=== PATIENT | male | born 1985 | race Caucasian/White ===

== ENCOUNTER 2017-11-07 10:51 | Outpatient (CLI) | payer OTHER | END 2017-11-07 10:52 | disposition critical access hospital (66) | LOC: EMS 10:51 | PROVIDERS: ATTEND Surgery | DX: R07.89 Other chest pain (principal); R10.9 Unspecified abdominal pain; M25.511 Pain in right shoulder; R51 Headache; M79.652 Pain in left thigh; M25.532 Pain in left wrist; M25.531 Pain in right wrist; W12.XXXA Fall on and from scaffolding, initial encounter; Y93.H3 Activity, building and construction; Y92.69 Other specified industrial and construction area as the place of occurrence of the external cause | CPT/HCPCS: A0425; A0427 ==

== ENCOUNTER 2017-11-07 11:12 | Emergency (ER) | payer OTHER ==
[2017-11-07] MEDS: HYDROmorphone 1 MG/ML SYRINGE IVP STA ×2 (11:18→12:58)
[2017-11-07] MEDS ORDERED: HYDROmorphone 1 MG/ML SYRINGE ONE (11:29)
--- NOTE | 2017-11-07 11:39 | XRAY Preliminary Report ---
Exam: XR CHEST 1 VIEW IMPRESSION: Normal single view chest. [facility] SITE ID: [id number]
[2017-11-07 11:41] LABS: BASOPHILS % (AUTO) 0.3 %; EOSINOPHILS # (AUTO) 0.2 10^3/uL (0.0-0.7); EOSINOPHILS % (AUTO) 1.2 %; HGB - HEMOGLOBIN 13.8 g/dL (14.0-18.0); LYMPHOCYTES # (AUTO) 3.2 10^3/uL (1.5-3.5); LYMPHOCYTES % (AUTO) 24.9 %; MEAN CORPUSCULAR HGB CONC 33.9 g/dL (32.0-36.0); MEAN CORPUSCULAR VOLUME 88.4 fL (80.0-94.0); MEAN PLATELET VOLUME 8.8 fL (7.4-11.4); MONOCYTES # (AUTO) 0.4 10^3/uL (0.0-1.0); MONOCYTES % (AUTO) 3.3 %; NEUTROPHILS % (AUTO) 70.3 %; PLT - PLATELET COUNT 245 10^3/uL (130-450); RED CELL DISTRIBUTION WIDTH 13.1 % (12.0-15.0); WHITE BLOOD COUNT 12.9 x10^3/uL (4.8-10.8)
--- NOTE | 2017-11-07 11:41 | XRAY Report ---
EXAM: CHEST RADIOGRAPHY EXAM DATE: 11/07/2017 11:31 AM. CLINICAL HISTORY: Trauma. Right chest pain COMPARISON: None. TECHNIQUE: 1 view. FINDINGS: Lungs/Pleura: No focal opacities evident. No pleural effusion. No pneumothorax. Mediastinum: Within exam limitations, the cardiomediastinal contour is normal. Other: None. IMPRESSION: Normal single view chest. [facility] Referring Provider Line: [phone] SITE ID: [id number]
[2017-11-07] MEDS ORDERED: SODIUM CHLORIDE 0.9% 2,000 ML IV ONE (11:44)
[2017-11-07] MEDS ORDERED: HYDROmorphone 1 MG/ML SYRINGE IVP STA ×4 (11:45→14:00)
[2017-11-07 11:59] LABS: ALBUMIN 3.8 g/dL (3.2-5.5); ALBUMIN/GLOBULIN RATIO 1.3 (1.0-2.2); BILIRUBIN,TOTAL 0.4 mg/dL (0.2-1.0); CALCIUM 8.5 mg/dL (8.5-10.3); CREATININE 0.8 mg/dL (0.6-1.2); TOTAL PROTEIN 6.8 g/dL (6.7-8.2)
[2017-11-07] MEDS ORDERED: IOPAMIDOL-300 100 ML VIAL IVP ONE (12:05)
--- NOTE | 2017-11-07 12:13 | CT Preliminary Report ---
Exam: CT HEAD W/O IMPRESSION: 1. No intracranial abnormality demonstrated. 2. Right nasal bone fracture, of indeterminate age. [facility] SITE ID: [id number]
--- NOTE | 2017-11-07 12:16 | CT Report ---
EXAM: CT HEAD EXAM DATE: 11/07/2017 11:55 AM. CLINICAL HISTORY: Trauma. 10 foot fall from ladder. COMPARISON: None. TECHNIQUE: Multiaxial CT images were obtained from the foramen magnum to the vertex. Reformats: Coron al. IV contrast: None. In accordance with CT protocol optimization, one or more of the following dose reduction techniques w ere utilized for this exam: automated exposure control, adjustment of mA and/or KV based on patient s ize, or use of iterative reconstructive technique. FINDINGS: Parenchyma: No intraparenchymal hemorrhage. No evidence of mass, midline shift, or CT findings of inf arction. Galdamez-white differentiation is distinct. Extraaxial Spaces: Normal for age. No subdural or epidural collections identified. Ventricles: Normal in size and position. Sinuses and Orbits: Imaged paranasal sinuses, orbits, and mastoids show no significant abnormality. T iny retention cyst within the right maxillary sinus. Mild rightward deviation of the nasal septum. No sinus fluid. Bones: Fracture of at least the right nasal bone with mild displacement/depression. This is of indete rminate age. No other fractures demonstrated. Other: None. IMPRESSION: 1. No intracranial abnormality demonstrated. 2. Right nasal bone fracture, of indeterminate age. [facility] Referring Provider Line: [phone] SITE ID: [id number]
--- NOTE | 2017-11-07 12:27 | ED Physician Documentation ---
History of Present Illness - Stated complaint Stated Complaint: LADDER FALL - Chief complaint Chief Complaint: Trauma Abd - Additonal information Additional information: hx from pt 32 male healthy no meds all pistachios last ate 1-2 hr ago fell 10 ft off ladder onto R side landing on joists of porch he was building no LOC pain to head and neck but primarily right chest and ab Review of Systems Ears: denies: Drainage/discharge Nose: denies: Epistaxis Cardiac: reports: Chest pain / pressure Respiratory: reports: Dyspnea GI: reports: Abdominal Pain. denies: Vomiting, Diarrhea : denies: Hematuria Musculoskeletal: reports: Neck pain, Back pain Neurologic: reports: Headache, Head injury Endocrine: denies: Easy bruising / bleeding Immunocompromised: denies: Immunocompromised PD PAST MEDICAL HISTORY - Past Medical History Past Medical History: No - Past Surgical History Past Surgical History: No - Present Medications Home Medications: Ambulatory Orders Medication Instructions Recorded Confirmed No Known Home Medications [No 11/07/17 11/07/17 Known Home Medications] - Allergies Allergies/Adverse Reactions: Allergies Allergy/AdvReac Type Severity Reaction Status Date / Time No Known Drug Allergies Allergy Verified 11/07/17 11:20 - Social History Does the pt smoke?: Yes Smoking Status: Current some day smoker Does the pt drink ETOH?: Yes Does the pt have substance abuse?: No - Immunizations Immunizations are current?: Yes PD ED PE NORMAL - Vitals Vital signs reviewed: Yes - General General: Alert and oriented X 3 - HEENT HEENT: No: Atraumatic (bruising and abrasions to right side of face) - Neck Neck: No: No bony TTP (+ low C spine TTP) - Cardiac Cardiac: RRR - Respiratory Respiratory: Other (limited insp 2/2 pain but malia BS no crepitus) - Abdomen Abdomen: Other (distended, dec BD, severe diffuse but R > L TTP) - Male Male : Other (no scrotal hematoma or blood at meatus) - Back Back: Other (no focal [place] or TTP except ribs) - Derm Derm: Other (bruising and abrasions to right side of face) - Extremities Extremities: No deformity, Other (pelvis stable) - Neuro Neuro: Alert and oriented X 3, No motor deficit, No sensory deficit, Normal speech Eye Opening: Spontaneous Motor: Obeys Commands Verbal: Oriented GCS Score: 15 Results - Vitals Vitals: Vital Signs - 24 hr 11/07/17 11/07/17 11/07/17 11:10 11:52 12:20 Temperature 36.6 C 36.6 C Heart Rate 92 82 84 Respiratory 27 H 20 18 Rate Blood Pressure 149/96 H 140/88 H 136/78 H O2 Saturation 99 96 99 11/07/17 11/07/17 11/07/17 13:00 13:03 14:00 Temperature Heart Rate 82 83 80 Respiratory 18 12 14 Rate Blood Pressure 136/82 H 138/98 H 132/78 H O2 Saturation 98 100 99 Oxygen O2 Source Nasal cannula - Labs Labs: Laboratory Tests 11/07/17 11/07/17 11/07/17 11:28 11:28 11:28 WBC 12.9 H RBC 4.60 L Hgb 13.8 L Hct 40.7 L MCV 88.4 MCH 30.0 MCHC 33.9 RDW 13.1 Plt Count 245 MPV 8.8 Neut # 9.0 H Lymph # 3.2 Prentiss # 0.4 Eos # 0.2 Baso # 0.0 Absolute Nucleated RBC 0.00 Nucleated RBC % 0.0 Sodium 138 Potassium 3.3 L Chloride 104 Carbon Dioxide 25 Anion Gap 9.0 BUN 16 Creatinine 0.8 Estimated GFR (MDRD) 114 Glucose 130 H Calcium 8.5 Total Bilirubin 0.4 AST 551 H ALT 461 H Alkaline Phosphatase 70 Total Protein 6.8 Albumin 3.8 Globulin 3.0 Albumin/Globulin Ratio 1.3 Lipase 41 Blood Type AB POSITIVE Antibody Screen NEGATIVE 11/07/17 13:05 WBC RBC Hgb 12.6 L Hct MCV MCH MCHC RDW Plt Count MPV Neut # Lymph # Prentiss # Eos # Baso # Absolute Nucleated RBC Nucleated RBC % Sodium Potassium Chloride Carbon Dioxide Anion Gap BUN Creatinine Estimated GFR (MDRD) Glucose Calcium Total Bilirubin AST ALT Alkaline Phosphatase Total Protein Albumin Globulin Albumin/Globulin Ratio Lipase Blood Type Antibody Screen - Rads (name of study) CXR Radiology: See rad report (pneumo) CTH Radiology: See rad report (no skull fx or ICH) CTCS Radiology: See rad report (asymmetric mild posterir subluxation R C1 facet vs C2 may be positiional ring of C1 intact, 2 X 5 X 3 ,mm ossification posterior to C1C@, no ajacent bony defect and may be a soft tissue calcification but acute fx not ruled out, rec MRI) CT angio chest Radiology: See rad report (non displaced fractures R lateral ribs 1-7, no hemo, no pneumo, pulm contusions) CT AP with IV con Radiology: See rad report (hepatic lacerations and hemtoma largest 9.8 cm is grade 4, intraperitoneal blood pooling in paracolic gutter and pelvis, grade 1 splenic lac, R adrenal hemorrhage) PD MEDICAL DECISION MAKING - ED course ED course: full trauma code called prior to arrival - surgeon at bedside on arrival pt arrived stable, initial FAST no FF seen to CT for burt scan poly trauma - with possible C1C2 fx, 7 rib fx, pulm contusions, grade 4 liver lac, grade 1 splenic lac,adrenal hematoma and some accumulating intraperitoneal blood pt remained stable throughout ED stay never hypotensive or tachy, H/H remained stable, did not require blood products [facility] trauma surg Dr Rascon felt pt best transferred to tertiary trauma center 2 /2 limited supply of blood products at [facility] accept pt in transfer pt and family update by me and surgery pt refused a hernandez and was able to urinate on his own Departure - Departure Disposition: 02 Transfer Acute Care Hosp Clinical Impression: Multiple fractures of rib involving first rib, Adrenal hemorrhage Liver laceration, grade IV, without open wound into cavity Qualifiers: Encounter type: initial encounter Qualified Code(s): S36.116A - Major laceration of liver, initial encounter Splenic laceration Qualifiers: Encounter type: initial encounter Qualified Code(s): S36.039A - Unspecified laceration of spleen, initial encounter Pulmonary contusion Qualifiers: Encounter type: initial encounter Laterality: right Qualified Code(s): S27.321A - Contusion of lung, unilateral, initial encounter Cervical spine fracture Qualifiers: Encounter type: initial encounter Cervical vertebra fracture level: C1 Fracture type: closed Fracture morphology: unspecified fracture morphology Fracture alignment: nondisplaced Qualified Code(s): S12.001A - Unspecified nondisplaced fracture of first cervical vertebra, initial encounter for closed fracture Fall Qualifiers: Encounter type: initial encounter Qualified Code(s): W19.XXXA - Unspecified fall, initial encounter Condition: Serious Discharge Date/Time: 11/07/17 14:14
--- NOTE | 2017-11-07 12:29 | CT Preliminary Report ---
Exam: CT CERVICAL SPINE W/O IMPRESSION: 1. Asymmetric mild posterior subluxation of the right C1 articular facet relative to C2. This may sim ply be positional. The ring of C1 is intact. 2. No definite fracture demonstrated. There is a 2 x 5 x 3 mm ossification immediately posterior to t he articulation of C1 and C2 on the left. No adjacent bony defect identified to confirm this to be a displaced fracture fragment and therefore this may represent an incidental soft tissue calcification/ ossification. Fracture fragment is difficult to definitively exclude. If further evaluation were indicated, MR imaging would be recommended. [facility] The above findings were discussed with Prerna Busby by Dr. Alessandro Nagel at 12:28 hrs on 11/07/17. SITE ID: [id number]
--- NOTE | 2017-11-07 12:32 | CT Report ---
EXAM: CT CERVICAL SPINE WITHOUT CONTRAST DATE: 11/07/2017 11:55 AM. HISTORY: Trauma. 10 foot fall from a ladder. COMPARISONS: None. TECHNIQUE: Thin-section axial images were acquired of the cervical spine without contrast. Post-proce ssing: Coronal and sagittal reformats. Other: None. In accordance with CT protocol optimization, one or more of the following dose reduction techniques w ere utilized for this exam: automated exposure control, adjustment of mA and/or KV based on patient s ize, or use of iterative reconstructive technique. FINDINGS: Alignment: Mild posterior subluxation of the C1 right articular pillar, relative to C2. Asymmetric ri ght-sided narrowing of the between the odontoid process and the C1 articulating pillar relative to th e left. However, the C1 ring is intact. Bones: No definite fractures or acute bone lesions. There is a horizontally oriented approximate 2 x 5 x 3 mm ossification just posterior to the articulation of C1 and C2 on the left. No adjacent bony d efect is demonstrated to confirm a displaced fracture fragment. Therefore, this may represent an inci dental adjacent ossification/calcification. No definite fractures identified. Interspace Levels/Facets: C1-C2: Unremarkable. C2-C3: Unremarkable. C3-C4: Unremarkable. C4-C5: Unremarkable. C5-C6: Unremarkable. C6-C7: Unremarkable. C7-T1: Unremarkable. Musculature: Normal. No fatty atrophy. Other: The paravertebral and prevertebral soft tissues are unremarkable. The lung apices are clear. IMPRESSION: 1. Asymmetric mild posterior subluxation of the right C1 articular facet relative to C2. This may sim ply be positional. The ring of C1 is intact. 2. No definite fracture demonstrated. There is a 2 x 5 x 3 mm ossification immediately posterior to t he articulation of C1 and C2 on the left. No adjacent bony defect identified to confirm this to be a displaced fracture fragment and therefore this may represent an incidental soft tissue calcification/ ossification. Fracture fragment is difficult to definitively exclude. If further evaluation were indicated, MR imaging would be recommended. [facility] The above findings were discussed with Prerna Busby by Dr. Alessandro Nagel at 12:28 hrs on 11/07/17. Referring Provider Line: [phone] SITE ID: [id number]
--- NOTE | 2017-11-07 12:41 | CT Preliminary Report ---
Exam: CT CHEST ANGIO (AORTA) IMPRESSION: 1. No evidence for thoracic aortic traumatic injury, aneurysm, or dissection. 2. Nondisplaced right lateral first through seventh rib fractures seen. 3. No pneumothorax. 4. No evidence for mediastinal hematoma. 5. Patchy foci of consolidation at the inferior aspect of the right middle lobe, lingula, and right g reater than left lung base could represent aspiration or pulmonary contusion. 6. Asymmetric enlargement of the right adrenal with surrounding fat stranding could represent a postt raumatic right adrenal hematoma. [facility] SITE ID: [id number]
--- NOTE | 2017-11-07 12:44 | CT Report ---
EXAM: CT ANGIOGRAM CHEST EXAM DATE: 11/07/2017 12:07 PM. CLINICAL HISTORY: Trauma. COMPARISON: None. TECHNIQUE: Routine helical imaging was performed through the chest in the arterial phase. IV contrast : 80 cc Isovue 300. Reconstructions: Coronal, sagittal, and 3D MIP reconstructions of the aorta. FINDINGS: Vascular Structures: Normal. No aneurysm, dissection, or significant atherosclerotic disease of the t horacic aorta. The visualized pulmonary arteries are within normal limits. Lungs/Pleura: Airspace consolidation in the inferior aspect of the right middle lobe, lingula, and ri ght greater than left lung base could reflect aspiration or contusion. No pneumothorax seen. Mediastinum: Unremarkable thyroid. No mediastinal high density collections to suspect hematoma. Rea l heart size. No pericardial effusion. No central pulmonary artery filling defects. Upper Abdomen: Enlargement of the right adrenal gland with surrounding fat stranding could represent a traumatic right adrenal hematoma. Bones: Nondisplaced fractures of the right lateral first through seventh ribs seen. No thoracic verte bral fractures evident. IMPRESSION: 1. No evidence for thoracic aortic traumatic injury, aneurysm, or dissection. 2. Nondisplaced right lateral first through seventh rib fractures seen. 3. No pneumothorax. 4. No evidence for mediastinal hematoma. 5. Patchy foci of consolidation at the inferior aspect of the right middle lobe, lingula, and right g reater than left lung base could represent aspiration or pulmonary contusion. 6. Asymmetric enlargement of the right adrenal with surrounding fat stranding could represent a postt raumatic right adrenal hematoma. [facility] Referring Provider Line: [phone] SITE ID: [id number]
--- NOTE | 2017-11-07 12:55 | CT Preliminary Report ---
Exam: CT ABDOMEN/PELVIS W/ IMPRESSION: 1. Hepatic lacerations and hematoma with a large laceration measuring up to 9.8 cm long. This is cons idered to represent a grade 4 injury/laceration. 2. Right adrenal hemorrhage. 3. Findings consistent with a grade 1 splenic laceration, as discussed above. 4. Multifocal patchy pulmonary groundglass opacities, greatest within the right middle lobe and less so the right lower lobe. Differential diagnosis includes atelectasis, contusion and aspiration. [facility] The above critical findings were discussed with Prerna Busby by Dr. Alessandro Nagel at 12:49 hrs on . SITE ID: [id number]
--- NOTE | 2017-11-07 12:58 | CT Report ---
EXAM: CT ABDOMEN AND PELVIS EXAM DATE: 11/07/2017 12:07 PM. CLINICAL HISTORY: Trauma. 10 foot fall from a latter COMPARISONS: None. TECHNIQUE: Routine helical CT imaging was performed through the abdomen and pelvis. IV contrast: 100M L OF ISOVUE 300. Enteric contrast: No. Reconstructions: Coronal and sagittal. In accordance with CT protocol optimization, one or more of the following dose reduction techniques w ere utilized for this exam: automated exposure control, adjustment of mA and/or KV based on patient s ize, or use of iterative reconstructive technique. FINDINGS: Lung Bases: Patchy groundglass opacities bilaterally, greatest within the right middle lobe and media l right lower lung with mild streaky and minimal groundglass opacities within the lingular segment le ft upper lobe and left lower lobe. Differential diagnosis includes contusion, atelectasis and aspirat ion in the setting of trauma. No irish pleural effusion. Liver: Findings consistent with multiple lacerations within the liver with the dominant being a long transversely oriented laceration extending nearly the full width across the mid posterior hepatic lob e, up to 9.8 cm in length. Smaller lacerations demonstrated. Focal hypodensity posterior medial lobe measures up to 3.8 cm and is consistent with a hematoma. These findings are compatible with grade 4 l aceration/injury. There is associated high density fluid along the margin of the liver and extending along the right paracolic gutter and within the pelvis consistent with hemorrhage. Gallbladder/Bile Ducts: Unremarkable. Spleen: Small amount of high density fluid in the perisplenic space consistent with hemorrhage. Appea garland of the anterior superior margin likely represents a cleft although a component of laceration is not excluded. A very small laceration may be present at the posterior margin of liver. This is consi stent with a grade 1 laceration. Pancreas: Normal. Adrenal Glands: Normal left adrenal gland. Enlargement right adrenal gland with intermediate density measuring approximately 1.8 x 4.8 cm with a streaky, surrounding density consistent with hemorrhage. Although some of the hemorrhage could be related to liver laceration, this is consistent with an adre nal hemorrhage. Some hazy opacity and minimal fluid/hemorrhage around the IVC and the aorta is likely tracking from the adrenal hemorrhage. Kidneys: Normal. No masses or hydronephrosis. No laceration demonstrated. Peritoneal Cavity/Bowel: Hemorrhage, as discussed above, including within the right paracolic gutter and accumulating within the pelvis. Largest area of accumulation within the pelvis measures 5.0 x 7.0 cm. No free air demonstrated. No adenopathy. No gross abnormality of the bowel. Pelvic Organs: Normal. The bladder and visualized pelvic organs are within normal limits. Vasculature: No aneurysms or other significant abnormality. Bones: No significant abnormality. Other: None. IMPRESSION: 1. Hepatic lacerations and hematoma with a large laceration measuring up to 9.8 cm long. This is cons idered to represent a grade 4 injury/laceration. 2. Right adrenal hemorrhage. 3. Findings consistent with a grade 1 splenic laceration, as discussed above. 4. Multifocal patchy pulmonary groundglass opacities, greatest within the right middle lobe and less so the right lower lobe. Differential diagnosis includes atelectasis, contusion and aspiration. [facility] The above critical findings were discussed with Prerna Busby by Dr. Alesasndro Nagel at 12:49 hrs on . Referring Provider Line: [phone] SITE ID: [id number]
[2017-11-07] MEDS ORDERED: IOPAMIDOL-300 100 ML VIAL ONE (13:47)
[2017-11-07 15:58] VITALS: BP 132/78
--- NOTE | 2017-11-09 07:56 | CONSULTATION NOTE ---
This dictation due to poor onsite health coach was completely garbled and useless. This has been re-dictated and signed. Please refer to the re-dictation. TD: 11/08/2017 07:45 MTDEssence
--- NOTE | 2017-11-29 19:48 | CONSULTATION NOTE ---
DATE OF SERVICE: 11/07/2017 Physician: Bruce Rascon MD The patient was initially seen in a consultation dictated on 11/07/2017; however , there was an error in the dictation system and the dictation returned a completely garbled and nonsensical clam sorter. This is then a re-dictation of that consultation albeit at a later date and is being done primarily from memory and chart review. Mr. Camacho is a 32-year-old male who fell from a ladder, landing on his right side on some joists of a porch he was building. The right side of his chest and abdomen bore the brunt of his trauma. The patient states he had no loss of consciousness. He struck again his right side of his chest, but did have some neck and head pain as well. Upon admission to the emergency room, he was evaluated almost concurrently by myself and Dr. Prerna Busby. He was able to give a history. He is normally not on any medications. HE IS ALLERGIC TO PISTACHIOS. He last ate about 1-2 hours prior to presentation to the emergency department. He complains of some shortness of breath and right-sided chest and abdominal pain. He is breathing well, but states it is getting slightly harder for him to breathe as it is painful to breathe. ALLERGIES: PISTACHIOS. MEDICATIONS: None. PAST MEDICAL AND SURGICAL HISTORY: Noncontributory. SOCIAL HISTORY: He is a cigarette smoker daily. He has been counseled in the past to quit. He does drink alcohol. He denies recreational drug use. FAMILY HISTORY: Noncontributory for any of the issues today. REVIEW OF SYSTEMS: GENERAL: He has not had any unexpected or unwarranted weight loss. He denies easy fatigability. HEENT: He denies any decrease or increase in his vision; he denies any decrease or increase in his hearing. He denies difficulty swallowing. He denies difficulty speaking. CARDIOVASCULAR: He denies chest pain or pressure. RESPIRATORY: He currently has some dyspnea, but normally does not. ABDOMEN: He denies abdominal pain, hematochezia, hematemesis or melena. GENITOURINARY: He denies dysuria. EXTREMITIES: He denies any arthritic symptoms. NEUROLOGIC: He denies focal weakness or altered sensation. PHYSICAL EXAMINATION: GENERAL: This is a 32-year-old male evaluated in room 3 at [facility] Emergency Department. He is evaluated lying supine on a gurney. He is alert and oriented to person, place and time. He is able to answer questions appropriately. His mood and affect are appropriate. VITAL SIGNS: Please refer to nurse's note. HEENT: He is normocephalic, he is atraumatic. He does have some bruising and abrasions on the right side of his face, but these are of minor nature. Nothing that needs to be sutured. NECK: Supple without mass or bruit. HEART: Slightly tachycardic and becoming a little bit less so with time and with pain medication. There is no rub, murmur or gallop. LUNGS: He has bilateral breath sounds. There is no crepitus. There is no dullness to percussion. It does hurt when I percuss him on the right-hand side. ABDOMEN: Mildly firm and he does have some tenderness in the right upper quadrant, as opposed to the remainder of the abdomen, but he has normal active bowel sounds. GENITOURINARY: He does not have a scrotal hematoma or blood at the meatus. RECTAL: I deferred. EXTREMITIES: Show no clubbing, cyanosis or edema. There is no obvious fracture. There is no hematoma. He is on pelvic rock. NEUROLOGIC: Again, he is alert and oriented to person, place and time. He asks and answers questions appropriately. His mood and affect are appropriate and he scores a Laura coma scale of 15. LABORATORY DATA: Abnormalities included white blood cell count of 12.9, hemoglobin of 13.8, hematocrit of 40.7, potassium of 3.3, glucose of 130, AST of 551, ALT of 461. Due to the patient's debility, the patient went for a burt scan of his head, chest, cervical spine, abdomen, pelvis and angiography. The head CT showed no intracranial abnormality identified. There is a right nasal bone fracture of indeterminate age. The chest x-ray was read as a normal single -view chest. The cervical spine CT scan was read as asymmetric mild posterior subluxation of the right C1 articular facet relative to C2. This may be simply positional. The ring of C1 is intact. There is no definite fracture demonstrated. There is a 2 x 5 x 3 mm ossification immediately posterior to the articulation of C1 and 2 on the left. No adjacent bony defect identified to confirm this to be a displaced fracture fragment and therefore, this may represent an incidental soft tissue calcification or ossification. Further fracture fragment is difficult to definitively exclude and they recommended MRI imaging. The CT angiography of the patient's chest was read as no evidence for thoracic aortic traumatic injury, aneurysm or dissection. There was nondisplaced right lateral 1st through 7th rib fractures seen, no pneumothorax, no evidence for mediastinal hematoma. There are patchy foci of consolidation at the inferior aspect of the right middle lobe, lingula, and right greater than left lung base could represent aspiration or pulmonary contusion. Asymmetric enlargement of the right adrenal with surrounding fat stranding could represent a posttraumatic right adrenal hematoma, and finally the abdominal pelvic CT was read as hepatic lacerations and hematoma with a large laceration measuring 9.8 cm long. This is considered to represent a grade IV injury and laceration. Right adrenal hemorrhage. Findings consistent with a grade I splenic laceration as discussed above and multifocal patchy pulmonary ground-glass opacities, greatest within the right middle lobe and less so in the right lower lobe. The differential diagnosis includes atelectasis, contusion, and aspiration. ASSESSMENT AND PLAN: A 32-year-old male suffered a fall from a ladder onto his right side with pulmonary contusions, grade IV liver laceration, grade I splenic laceration, possible right adrenal hemorrhage, and other incidental findings that need further characterization when stable. PLAN: We do not have the means and blood products to take care of a patient with a grade IV liver laceration at this hospital. It is likely going to require simply observation, but if it requires surgery, it would be emergent with requirement for a large volume of blood products, which again we do not have at this hospital. Transfer to a tertiary care center must be completed. This was discussed with the patient and his friends, who were at the bedside. The patient is in agreement. I wish to thank Dr. Busby very much for the opportunity to participate in this gentleman's care, noting that 60 minutes of [id number] time was spent with the patient and in documentation. TD: 11/29/2017 20:47 FARHANA
== END 2017-11-07 14:14 | disposition short-term general hospital (02) ==
LOC: EDBD → ED 11:12
DX: S12.001A Unspecified nondisplaced fracture of first cervical vertebra, initial encounter for closed fracture (principal); S36.116A Major laceration of liver, initial encounter; S37.812A Contusion of adrenal gland, initial encounter; S36.039A Unspecified laceration of spleen, initial encounter; S22.49XA Multiple fractures of ribs, unspecified side, initial encounter for closed fracture; S27.321A Contusion of lung, unilateral, initial encounter; S00.83XA Contusion of other part of head, initial encounter; S00.81XA Abrasion of other part of head, initial encounter; W11.XXXA Fall on and from ladder, initial encounter; W17.89XA Other fall from one level to another, initial encounter; F17.210 Nicotine dependence, cigarettes, uncomplicated
CPT/HCPCS: 36415; 70450; 71010; 71275; 72125; 74177; 80053; 83690; 85018; 85025; 86850; 86900; 86901; 96361; 96374; 96376; 99284; G0390; J1170; Q9967; 86920; 99285